=== PATIENT | female | born 1970 | race Hispanic/Latino ===

== ENCOUNTER → 2021-03-11 | Day surgery (SDC) | payer BC ==
[2012-03-19 18:57] VITALS: BP 107/80
--- NOTE | 2021-03-11 10:50 | RAD REPORT ---
EXAM DESCRIPTION: Ultrasound-guided right breast cyst FNA. CLINICAL HISTORY: Right breast mass/cyst N63.10 COMPARISON: Follow Up Breast Axilla Comp dated 01/19/2021 FINDINGS: Informed consent was obtained and time-out was performed. The patient's right breast was prepped and draped in the usual sterile fashion. 1% lidocaine was used for local anesthetic purposes. Utilizing aseptic technique and ultrasound guidance, a FNA needle, small hypoechoic cyst right breast 9 o'clock position was aspirated. A small amount of cyst fluid was obtained. The seen the cyst was s een to completely collapse. Patient tolerated procedure well. IMPRESSION: Successful ultrasound guided right breast cyst FNA procedure. .
== END ==
LOC: DS 09:37
PROVIDERS: ATTEND Surgery
DX: N63.10 Unspecified lump in the right breast, unspecified quadrant (principal)
CPT/HCPCS: 19000; 88162; 88305

== ENCOUNTER 2022-10-31 06:48 | Emergency (ER) | payer BC ==
--- OUTSIDE RECORDS SUMMARY | 2022-10-31 06:51 | XMS REPORT | Continuity of Care Document ---
:1970 Author Organization [facility] t Address [address] [place] [address] Care Team Providers Name Role Phone ELDER ZENDEJAS Primary Care Physician Unavailable Mary Anne Attending Clinician Unavailable CHERELLE Attending Clinician Unavailable MARIELLE PORTER Attending Clinician Unavailable Only, Brandon [facility] Attending Clinician Unavailable Marielle Porter MD Attending Clinician NATALYA CAMARA Attending Clinician Unavailable Provider, [facility] Attending Clinician Unavailable Ramila Lopez Attending Clinician Doctor Unassigned, [place] Attending Clinician Unavailable Manjit_Ana Admitting Clinician Unavailable CHERELLE Admitting Clinician Unavailable Payers Payer Name Policy Type Policy Number Effective Date Expiration Date S elizabeth [facility]IL[facility] [id number] 2022 ADVANTAGE (HMO) 00:00:00 [facility] [id number] 2021 00:00:00 [employer] TRS CARE [id number] 2017 00:00:00 Problems Condition Condition Condition Status Onset Resolution Last Treating Co mments Source Name Details Category Date Date Treatment Clinician Date No known No known Disease Unive rs active active ity of problems problems [facility] Allergies, Adverse Reactions, Alerts Allergy Allergy Status Severity Reaction(s) Onset Inactive Treating Comm ents Source Name Type Date Date Clinician NO KNOWN Drug Active Univers ALLERGIE Class ity of S [facility] Family History Family Member Diagnosis Comments Start Date Stop Date Source Natural father Cancer [facility] Natural mother [facility] Other [facility] Social History Social Habit Start Date Stop Date Quantity Comments Source Exposure to Not sure [facility] SARS-CoV-2 [facility] (event) [place] Tobacco use and 2018-12-21 2018-12-21 Never used Universit y of exposure 00:00:00 00:00:00 [facility] Alcohol intake 2018-01-14 2018-01-14 [facility] 00:00:00 00:00:00 non-drinker of alcohol (finding) Sex [birth year] [facility] 00:00:00 00:00:00 Smoking Status Start Date Stop Date Source Never smoker [facility] Medications Ordered Filled Start Stop Current Ordering Indication Dosage Frequency Signature Comments Components Source Medication Medication Date Date Medication? Clinician (SIG) Name Name cephALEXin 2020-09- No [id number] 250mg Take 1 Univers (KEFLEX) 10-06 capsule by ity of 250 mg 00:00: 05:59 mouth [place] capsule 00 :00 every 6 Medical (six) Branch hours for 5 days. fluconazole 2020-09- No [id number] 150mg Take 1 Univers (DIFLUCAN) 10-06 tablet by ity of 150 mg 00:00: 05:59 [place] tablet [place] :00 now for 1 Medical dose. Branch pregabalin 2019-09 Yes 50mg Take 50 mg U nivers 50 mg 0-05 by mouth 3 ity of capsule 14:32: (three) [place] 13 times Medical daily. Branch pregabalin 2019-09 Yes 50mg Take 50 mg U nivers 50 mg 0-05 by mouth 3 ity of capsule 14:32: (three) [place] 13 times Medical daily. Branch pregabalin 2019-09 Yes 50mg Take 50 mg U nivers 50 mg 0-05 by mouth 3 ity of capsule 09:32: (three) [place] 13 times Medical daily. Branch pregabalin 2019-09 Yes 50mg Take 50 mg U nivers 50 mg 0-05 by mouth 3 ity of capsule 09:32: (three) [place] 13 times Medical daily. Branch bromphenira 2019-09- No [id number] 5mL Take 5 mL Univers mine-pseudo 0-05 10-16 by mouth 4 i ty of ephedrine-D 00:00: 04:59 (four) [place] as M (BROMFED 00 :00 times Medical DM) 2-30-10 daily as Bran ch mg/5 mL needed for syrup Cough for up to 10 days. bromphenira 2019-09- No [id number] 5mL Take 5 mL Univers mine-pseudo 0-05 10-16 by mouth 4 i ty of ephedrine-D 00:00: 04:59 (four) [place] as M (BROMFED 00 :00 times Medical DM) 2-30-10 daily as Bran ch mg/5 mL needed for syrup Cough for up to 10 days. methylPREDN 2019-09- No [id number] Take by Univers ISolone 4 0-05 10-12 mouth ity of mg tablets 00:00: 04:59 SEE-INSTRU [place] 00 :00 CTIONS for Medical 6 days. Branch follow package directions methylPREDN 2019-09- No [id number] Take by Univers ISolone 4 0-05 10-12 mouth ity of mg tablets 00:00: 04:59 SEE-INSTRU [place] 00 :00 CTIONS for Medical 6 days. Branch follow package directions DULoxetine 2018- Yes 60mg Take 60 mg U nivers 60 mg 3-30 by mouth ity of capsule 22:05: daily. [address] DULoxetine 2018-0 Yes 60mg Take 60 mg U nivers 60 mg 3-30 by mouth ity of capsule 22:05: daily. [address] DULoxetine 2018-0 Yes 60mg Take 60 mg U nivers 60 mg 3-30 by mouth ity of capsule 17:05: daily. [address] DULoxetine 2018-0 Yes 60mg Take 60 mg U nivers 60 mg 3-30 by mouth ity of capsule 17:05: daily. [address] pregabalin 2018- Yes [id number] 50mg Take 1 Univers (LYRICA) 50 3-30 capsule by it y of mg capsule 00:00: mouth 3 [place] (three) Medical times Branch daily. pregabalin 2018- Yes [id number] 50mg Take 1 Univers (LYRICA) 50 3-30 capsule by it y of mg capsule 00:00: mouth [place] 00 (three) [place] times Branch daily. pregabalin 2018- Yes [id number] 50mg Take 1 Univers (LYRICA) 50 3-30 capsule by it y of mg capsule 00:00: mouth 3 [place] (three) Medical times Branch daily. pregabalin 2018- Yes [id number] 50mg Take 1 Univers (LYRICA) 50 3-30 capsule by it y of mg capsule 00:00: mouth 3 [place] 00 (three) Medical times Branch daily. Immunizations Ordered Filled Immunization Date Status Comments [facility] e Immunization Name Name SARS-COV-2 COVID-19 2021-01-01 Completed Unive rsity of PFIZER VACCINE 00:00:00 [facility] SARS-COV-2 COVID-19 2021-01-01 Completed Unive rsity of PFIZER VACCINE 00:00:00 [facility] SARS-COV-2 COVID-19 2020-12-11 Completed Unive rsity of PFIZER VACCINE 00:00:00 [facility] SARS-COV-2 COVID-19 2020-12-11 Completed Unive rsity of PFIZER VACCINE 00:00:00 [facility] Vital Signs Vital Name Observation Time Observation Value Comments Source Diastolic blood 2021-08-06 22:17:00 83 mm[Hg] Unive rsity of pressure [facility] Heart rate 2021-08-06 22:17:00 94 /min [facility] Body temperature 2021-08-06 22:17:00 36.61 [facility] Respiratory rate 2021-08-06 22:17:00 18 /min [facility] Body weight 2021-08-06 22:17:00 68.04 kg [facility] BMI 2021-08-06 22:17:00 27.44 kg/m2 [facility] Oxygen saturation in 2021-08-06 22:17:00 98 /min [facility] Arterial blood by [facility] [place] [facility] Pulse oximetry Branch Systolic blood 2021-08-06 22:17:00 127 mm[Hg] Univer sity of pressure [facility] Systolic blood 2020-06-28 14:29:00 128 mm[Hg] Univer sity of pressure [facility] Diastolic blood 2020-06-28 14:29:00 84 mm[Hg] Unive rsity of [facility] Heart rate 2020-06-28 14:29:00 88 /[facility] Body temperature 2020-06-28 14:29:00 36.56 [facility] Respiratory rate 2020-06-28 14:29:00 18 /min [facility] Body height 2020-06-28 14:29:00 157.5 [facility] Body weight 2020-06-28 14:29:00 68.312 kg [facility] BMI 2020-06-28 14:29:00 27.55 kg/m2 [facility] Oxygen saturation in 2020-06-28 14:29:00 98 /min [facility] Arterial blood by [facility] [place] [facility] Pulse oximetry Branch Procedures Procedure Date / Time Performed Performing Clinician Sourc e POCT URINALYSIS 2021-08-06 22:23:00 [facility] o f [facility] Plan of Care Planned Activity Planned Date Details Comments Source Future Scheduled 2022-10-12 COVID-19 VACCINE (#1) [facility] Test 09:02:35 [code = COVID-19 VACCINE (#1)] Future Scheduled 2022-10-12 Hepatitis C screening [facility] Test 09:02:35 (procedure) [code = 239247247] Future Scheduled 2022-10-12 Screening for [facility] Test 09:02:35 malignant neoplasm of cervix (procedure) [code = 426245463] Future Scheduled 2022-10-12 BREAST CANCER [facility] Test 09:02:35 SCREENING [code = BREAST CANCER SCREENING] Future Scheduled 2022-10-12 COLONOSCOPY SCREENING [facility] Test 09:02:35 [code = COLONOSCOPY SCREENING] Future Scheduled 2022-10-12 [facility] 09:02:35 [code = INFLUENZA VACCINE] Encounters Start End Encounter Admission Attending Care Care Encounter Source Date/Time Date/Time Type Type Clinicians Facility Department ID 2022-10-12 2022-10-12 Outpatient [facility] [id number] 00:00:00 00:00:00 [facility] 2022-09-11 2022-09-11 Travel [id number] Methodi 00:00:00 00:00:[id number] 3.430.2.7 0.2.7.3.698 Ho spita [id number] 084.8 l .8 2022-04-24 2022-04-24 Outpatient GILBERT_KAT MEHOP [facility] [id number] 00:00:00 00:00:00 IE 0801 da [facility] 2021-10-19 2021-10-19 [facility] [id number] Univers 17:00:00 17:00:00 [facility] 2021-10-19 2021-10-19 Laboratory Only, Ang Db Test [facility] 1.2.8 [id number] [id number] Univers 16:45:00 17:00:00 [facility] 350.1.13.10 ity of [place] 4.2.7.2.686 Keith as JO ANN?BLEA [id number] [address] OFFICE [facility] 2021-10-19 2021-10-19 [address] [facility] [id number] Univers 16:45:00 16:50:06 [facility] 2021-08-06 2021-08-06 [facility] [id number] Univers 16:20:00 16:31:28 [facility] 2021-08-06 2021-08-06 [facility] [id number] Univers 16:13:52 16:31:28 Care Marielle [employer] [id number] it y of [place] 4.2.7.2.686 Keith as JO ANN?BLEA [id number] [address] MEDICAL OFFICE [facility] 2021-01-01 2021-01-01 Outpatient [facility] [id number] Univers 08:30:00 08:30:00 ity [facility] 2020-12-11 2020-12-11 Outpatient [facility] [id number] Univers 15:50:00 [facility] 2020-08-11 2020-08-11 Outpatient R HOA, [facility] [id number] Univers 11:40:00 11:40:00 [facility] 2020-06-28 2020-06-28 Urgent Provider, [facility] [id number] Univers 09:17:58 09:49:43 Care Ramila Riggins [facility] [id number] [facility] [id number] [facility] [phone] [address] Office [address] 2020-06-28 2020-06-28 Outpatient R [facility] [id number] Univers 09:20:00 09:20:00 ity [facility] 2020-06-28 2020-06-28 Letter Doctor SELENA [id number] Univers 00:00:00 00:00:00 (Out) Unassigned, GIO 350.1.13.10 ity of [place] [facility] 4.2.7.2.686 Keith as [phone] [address] Results Test Description Test Time Test Comments Results Result Comments Source POCT URINALYSIS W SPECIFIC GRAVITY 2021-08-06 22:24:00 Test Item Value Reference Range Interpretation Comme nts POCT U SP GRAV (test code = 1.010 mg/dl 1.005-1.025 3255) POCT PH U (test code = 3254) 7 mg/dl 5-8 POCT U LEUK EST (test code = ++ Negative - Negative 3263) POCT U NIT (test code = 3262) neg Negative - Negative POCT U PROT (test code = 3259) trace Negative - Negative POCT U GLU (test code = 3256) neg Negative - Negative POCT U KETONE (test code = neg Negative - Negative 3258) POCT U UROBILI (test code = normal 0.2-1 3260) POCT U BILI (test code = 3261) neg Negative - Negative POCT U BLD (test code = 3257) about 50 Negative - Negative POCT U COLOR (test code = 3266) yellow POCT U APPEAR (test code = cloudy 3267) LYDIA (test code = LYDIA) accurate development and interpretation of all internal controls Lab Interpretation (test code = Abnormal 33390-8) [facility]
[2022-10-31] MEDS ORDERED: NA CHLORIDE 0.9% 1,000 ML ONE (07:30)
[2022-10-31 07:50] LABS: Absolute Lymphocytes (CBC) 1.5 K/uL (0.7-4.9); Hematocrit 41.3 % (36.0-45.0); Lymphocytes % 23.9 % (15.3-44.8); MCV 93.3 fL (80-100); MPV 7.1 fL (7.6-11.3); RBC Red Blood Cell Count 4.43 M/uL (3.86-4.86)
[2022-10-31 07:51] LABS: Urine Bacteria <20 /HPF (<20); Urine RBC <5 /HPF (None Seen)
[2022-10-31 08:08] LABS: Albumin 3.5 g/dL (3.4-5.0); Bilirubin Total 0.4 mg/dL (0.2-1.0); Potassium 3.8 mmol/L (3.5-5.1); Protein, Total 6.9 g/dL (6.4-8.2)
--- NOTE | 2022-10-31 08:50 | RAD REPORT ---
EXAM DESCRIPTION: CT - Abdomen Pelvis W Contrast - 10/31/2022 8:24 am CLINICAL HISTORY: ABD PAIN COMPARISON: CT ABD PELVIS W CONTRAST dated 06/08/2013 TECHNIQUE: Biphasic, helical CT imaging of the abdomen and pelvis was performed following 100 ml non -ionic IV contrast. Oral contrast: No. All CT scans are performed using dose optimization technique as appropriate and may include automated exposure control or mA/KV adjustment according to patient size. FINDINGS: No suspicious findings in the lung bases. The liver, spleen, and pancreas show no suspicious findings. Liver attenuation shows a mild diffuse f atty infiltration. Gallbladder and biliary tree are also without suspicious finding. Symmetric renal function is seen with no hydronephrosis or suspicious renal mass. No pyelonephritis o r acute parenchymal process. No bladder abnormalities. No adrenal abnormalities. Uterus is absent. Le ft ovary is unremarkable. Right ovary is positioned along the right posterior margin of the urinary b ladder. A 2.6 centimeter right ovarian cyst is present. Cyst rupture or hemorrhage not identified. A 12 millimeter right-side vaginal wall cyst is present. No dilated bowel loops or bowel wall thickening. The appendix is normal. No free air, free fluid or i nflammatory stranding. No hernia, mass or bulky lymphadenopathy. Lower lumbar degenerative changes are present. IMPRESSION: No appendicitis or other emergent CT abdomen or pelvis finding. A 2.6 centimeter right ovarian cyst is present. No cyst rupture or hemorrhage findings.
--- NOTE | 2022-10-31 09:13 | EDPHYS ---
Physician Documentation [facility] Name: Mine Azevedo Age: 51 yrs Sex: Female : 1970 Arrival Date: 10/31/2022 Time: 06:53 Bed 17 Private MD: ED Physician Kieran uH HPI: 10/31 07:41 This 51 yrs old Female presents to ER via Ambulatory with complaints of Pelvic sp3 Pain, Groin Pain. 07:41 51-year-old female with history of fibromyalgia status post hysterectomy 13 years ago sp3 presents with right lower quadrant abdominal pain for approximately 3 weeks. She saw her dryland farmer last week who recommended an ultrasound but she has not been able to obtain that as of yet. Over the weekend her symptoms increased and today she decided to come in to be evaluated. Pain is described as 6-7 out of 10 and waxing and waning in nature. It has no correlation with food, bowel movements, voiding, or activity. She denies headache, neck pain, fever, URI symptoms, chest pain, shortness of breath, trauma, injury, anterior abdominal pain, nausea, vomiting, diarrhea, rash, vaginal discharge or bleeding, urinary symptoms, or any other symptoms on ROS at this time.. BAKER CHEF: 07:03 LMP N/A - Hysterectomy ld1 Historical: - Allergies: 07:03 No Known Allergies; ld1 - Home Meds: 07:03 Cymbalta 60 mg oral cpDR 1 cap once daily [Active]; gabapentin 400 mg oral cap 3 times ld1 per day [Active]; - PMHx: 07:03 Fibromyalgia; ld1 - PSHx: 07:03 hysterectomy; Tonsillectomy; ld1 - Immunization history:: Adult Immunizations up to date, Client reports receiving the 2nd dose of the Covid vaccine. - Social history:: Smoking status: Patient denies any tobacco usage or history of. Patient/guardian denies using alcohol. ROS: 07:43 Constitutional: Negative for fever, chills, and weight loss, Eyes: Negative for injury, sp3 pain, redness, and discharge, ENT: Negative for injury, pain, and discharge, Neck: Negative for injury, pain, and swelling, Cardiovascular: Negative for chest pain, palpitations, and edema, Respiratory: Negative for shortness of breath, cough, wheezing, and pleuritic chest pain, Back: Negative for injury and pain, MS/Extremity: Negative for injury and deformity, Skin: Negative for injury, rash, and discoloration, Neuro: Negative for headache, weakness, numbness, tingling, and seizure, Psych: Negative for depression, anxiety, suicide ideation, homicidal ideation, and hallucinations, Allergy/Immunology: Negative for hives, rash, and allergies, Endocrine: Negative for neck swelling, polydipsia, polyuria, polyphagia, and marked weight changes, Hematologic/Lymphatic: Negative for swollen nodes, abnormal bleeding, and unusual bruising. 07:43 All other systems are negative. Exam: 07:43 Constitutional: This is a well developed, well nourished patient who is awake, alert, sp3 and in no acute distress. Head/Face: Normocephalic, atraumatic. Eyes: Pupils equal round and reactive to light, extra-ocular motions intact. Lids and lashes normal. Conjunctiva and sclera are non-icteric and not injected. Cornea within normal limits. Periorbital areas with no swelling, redness, or edema. ENT: Nares patent. No nasal discharge, no septal abnormalities noted. External auditory canals are clear. Oropharynx with no redness, swelling, or masses, exudates, or evidence of obstruction, uvula midline. Mucous membranes moist. Neck: Trachea midline, no thyromegaly or masses palpated, and no cervical lymphadenopathy. Supple, full range of motion without nuchal rigidity, or vertebral point tenderness. No Meningismus. Chest/axilla: Normal chest wall appearance and motion. Nontender with no deformity. No lesions are appreciated. Cardiovascular: Regular rate and rhythm with a normal S1 and S2. No gallops, murmurs, or rubs. Normal PMI, no JVD. No pulse deficits. Respiratory: Lungs have equal breath sounds bilaterally, clear to auscultation and percussion. No rales, rhonchi or wheezes noted. No increased work of breathing, no retractions or nasal flaring. Back: No spinal tenderness. No costovertebral tenderness. Full range of motion. Skin: Warm, dry with normal turgor. Normal color with no rashes, no lesions, and no evidence of cellulitis. MS/ Extremity: Pulses equal, no cyanosis. Neurovascular intact. Full, normal range of motion. Neuro: Awake and alert, GCS 15, oriented to person, place, time, and situation. Cranial nerves II-XII grossly intact. Motor strength 5/5 in all extremities. Sensory grossly intact. Cerebellar exam normal. Normal gait. Psych: Awake, alert, with orientation to person, place and time. Behavior, mood, and affect are within normal limits. 07:43 Abdomen/GI: Mild right lower quadrant abdominal pain without peritonitis, rebound or guarding. Pain extends into the right inguinal canal. There is no signs of hernia.. Vital Signs: 07:01 Pulse 77; Resp 18; Temp 98.3; Pulse Ox 100% on R/A; Weight 70.31 kg; Height 5 ft. 2 in. ld1 (157.48 cm); Pain 6/10; 07:01 BP 130 / 77; ld1 08:36 BP 109 / 60; Pulse 78; Pulse Ox 100% on R/A; ap3 07:01 Body Mass Index 28.35 (70.31 kg, 157.48 cm) ld1 MDM: 07:11 Patient medically screened. sp3 07:44 Data reviewed: vital signs, nurses notes. ED course: 51-year-old female with right sp3 lower quadrant inguinal abdominal pain. Differential diagnosis includes inguinal hernia, appendicitis, intestinal pathology including colitis, functional abdominal pain, UTI, kidney stone. I am not highly suspicious for CHICKEN STUFFER etiology given hysterectomy and lack of vaginal symptoms. Suprapubic abdominal pain. Work-up included CT scan of the abdomen and pelvis, laboratory values, and urine analysis. I reviewed nursing notes and vital signs. Disposition likely discharge if work-up is negative with follow-up to her dryland farmer. Clinically I am not highly suspicious for sepsis, aortic pathology, shock, or any other critical findings.. 09:12 ED course: Laboratory values and CT scan demonstrate no acute abnormality. Small sp3 ovarian cyst is noted likely functional in nature. I am not suspecting torsion. Patient will be safely discharged with CHICKEN STUFFER follow-up.. 10/31 07:18 Order name: CBC with Diff; Complete Time: 09:12 sp3 10/31 07:18 Order name: CMP; Complete Time: 09:12 sp3 10/31 07:18 Order name: Lipase; Complete Time: 09:12 sp3 10/31 07:18 Order name: Urine Microscopic Only; Complete Time: 09:12 sp3 10/31 07:18 Order name: CT Abd/Pelvis - IV Contrast Only; Complete Time: 09:12 sp3 10/31 07:18 Order name: IV Saline Lock; Complete Time: 34 sp3 10/31 07:18 Order name: Labs collected and sent; Complete Time: sp3 10/31 07:18 Order name: NPO; Complete Time: 07:21 sp3 Administered Medications: 07:40 Drug: NS 0.9% 1000 ml Route: IV; Rate: 1 bolus; Site: right antecubital; ap3 10:25 Follow up: IV Status: Completed infusion; IV Intake: 1000ml ap3 Disposition Summary: 10/31/22 09:13 Discharge Ordered Location: Home sp3 Condition: Stable sp3 Diagnosis - Other ovarian cysts sp3 Followup: sp3 - With: Private Physician - When: Upon discharge from the Emergency Department - Reason: Recheck today's complaints Discharge Instructions: - Discharge Summary Sheet sp3 - Ovarian Cyst sp3 Forms: - Medication Reconciliation Form sp3 - Thank You Letter sp3 - Antibiotic Education sp3 - Prescription Opioid Use sp3 Signatures: Dispatcher [employer] EDYany Cody RN RN ap3 Maria Washington RN RN ld1 Kieran Hu MD MD sp3 Corrections: (The following items were deleted from the chart) 07:39 07:18 Urine Dipstick-Ancillary ordered. sp3 ap3
--- NOTE | 2022-10-31 09:13 | ER ---
Nurse's Notes [facility] Name: Mine Azevedo Age: 51 yrs Sex: Female : 1970 Arrival Date: 10/31/2022 Time: 06:53 Bed 17 Private MD: Diagnosis: Other ovarian cysts Presentation: 10/31 07:01 Chief complaint: Patient states: LRQ \T\ pelvic pain X 3 weeks. Coronavirus screen: At ld1 this time, the client does not indicate any symptoms associated with coronavirus-19. Ebola Screen: No symptoms or risks identified at this time. Initial Sepsis Screen: Does the patient meet any 2 criteria? No. Patient's initial sepsis screen is negative. Does the patient have a suspected source of infection? No. Patient's initial sepsis screen is negative. Risk Assessment: Do you want to hurt yourself or someone else? Patient reports no desire to harm self or others. Onset of symptoms was October 31, 2022. 07:01 Method Of Arrival: Ambulatory ld1 07:01 Acuity: DONALD 3 ld1 Triage Assessment: 07:03 General: Appears in no apparent distress. comfortable, Behavior is calm, cooperative, ld1 appropriate for age. Pain: Complains of pain in right lower quadrant and pelvis Pain does not radiate. Pain currently is 6 out of 10 on a pain scale. at worst was 9 out of 10 on a pain scale. Quality of pain is described as sharp, Is intermittent. Pain: Is. Pain: Aggravated by laying down. EENT: No signs and/or symptoms were reported regarding the EENT system. Neuro: Level of Consciousness is awake, alert, obeys commands, Oriented to person, place, time, situation. Cardiovascular: Capillary refill < 3 seconds Patient's skin is warm and dry. Respiratory: Airway is patent Respiratory effort is even, unlabored. GI: Abdomen is round non-distended. : No signs and/or symptoms were reported regarding the genitourinary system. Derm: No signs and/or symptoms reported regarding the dermatologic system. Musculoskeletal: No signs and/or symptoms reported regarding the musculoskeletal system. 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 - Social history:: Smoking status: Patient denies any tobacco usage or history of. Patient/guardian denies using alcohol. Screenin:34 [facility] ED Fall Risk Assessment (Adult) History of falling in the last 3 months, ap3 including since admission No falls in past 3 months (0 pts). Abuse screen: Denies threats or abuse. Nutritional screening: No deficits noted. Tuberculosis screening: No symptoms or risk factors identified. Assessment: 07:40 General: Appears comfortable, Behavior is calm, cooperative. Pain: Complains of pain in ap3 right lower quadrant Pain began approx 3 weeks ago. Neuro: Level of Consciousness is awake, alert, obeys commands, Oriented to person, place, time, situation, Gait is steady, Speech is normal. Cardiovascular: Patient's skin is warm and dry. Respiratory: Airway is patent Respiratory effort is even, unlabored, Respiratory pattern is regular, symmetrical. Vital Signs: 07:01 Pulse 77; Resp 18; Temp 98.3; Pulse Ox 100% on R/A; Weight 70.31 kg; Height 5 ft. 2 in. ld1 (157.48 cm); Pain 6/10; 07:01 BP 130 / 77; ld1 08:36 BP 109 / 60; Pulse 78; Pulse Ox 100% on R/A; ap3 07:01 Body Mass Index 28.35 (70.31 kg, 157.48 cm) ld1 ED Course: 06:53 Patient arrived in ED. ja2 07:03 Triage completed. ld1 07:03 Arm band placed on right wrist. ld1 07:10 Kieran Hu MD is Attending Physician. sp3 07:18 Yany Jasso, DELANEY is Primary Nurse. ap3 07:33 Inserted saline lock: 20 gauge in right antecubital area, using aseptic technique. ap3 Blood collected. 07:34 Patient has correct armband on for positive identification. Bed in low position. Call ap3 light in reach. Side rails up X 1. Pulse ox on. NIBP on. Door closed. Noise minimized. 08:[address] via wheelchair. ap3 08:26 CT Abd/Pelvis - IV Contrast Only In Process Unspecified. EDMS 08:27 Patient moved back from [address]. ap3 10:24 IV discontinued, intact, bleeding controlled, No redness/swelling at site. Pressure ap3 dressing applied. 10:30 No provider procedures requiring assistance completed. ap3 Administered Medications: 07:40 Drug: NS 0.9% 1000 ml Route: IV; Rate: 1 bolus; Site: right antecubital; ap3 10:25 Follow up: IV Status: Completed infusion; IV Intake: 1000ml ap3 Medication: 07:35 VIS not applicable for this client. ap3 Intake: 10:25 IV: 1000ml; Total: 1000ml. ap3 Outcome: 09:13 Discharge ordered by . sp3 10:31 Discharged to home ambulatory. ap3 10:31 Condition: good 10:31 Discharge instructions given to patient, Instructed on discharge instructions, follow up and referral plans. Demonstrated understanding of instructions, follow-up care. 10:31 Patient left the ED. ap3 Signatures: Dispatcher [employer] EDCA Yany Jasso RN RN ap3 Maria Washington RN RN ld1 Kieran Hu MD MD sp3 Alia Vega
[2022-10-31 10:54] VITALS: TEMP 98.3; O2SAT 100
[2022-10-31 10:55] VITALS: BP 109/60
== END 2022-10-31 10:31 | disposition home or self-care (01) ==
LOC: ER 06:48
DX: N83.299 Other ovarian cyst, unspecified side (principal)
CPT/HCPCS: 85025; 36415; 81015; 83690; 80053; 74177; Q9967; J7030

== ENCOUNTER 2024-01-02 11:31 | Day surgery (SDC) | payer BC ==
[2024-01-01 16:45] LABS: Absolute Basophils 0.1 K/uL (0-0.5); Absolute Eosinophils 0.1 K/uL (0-0.5); Absolute Lymphocytes (CBC) 2.5 K/uL (0.7-4.9); Absolute Monocytes 0.6 K/uL (0.1-1.3); Absolute Neutrophil 4.6 K/uL (1.8-8.0); Basophils % 0.8 % (0-1.3); Eosinophils % 1.1 % (0-4.4); Hematocrit 39.1 % (36.0-45.0); Hemoglobin 13.4 g/dL (12.0-15.0); Lymphocytes % 32.2 % (15.3-44.8); MCH 32.3 pg (27.0-35.0); MCHC 34.1 g/dL (32.0-36.0); MCV 94.7 fL (80-100); MPV 7.9 fL (7.6-11.3); Monocytes % 8.1 % (3.3-12.3); Neutrophils % 57.8 % (41.7-73.7); Nucleated Red Blood Cells % 0.1 % (0-0); Platelets 286 thou/uL (152-406); RBC Red Blood Cell Count 4.13 M/uL (3.86-4.86); Red Cell Distribution Width 12.9 % (12.1-15.2)
[2024-01-01 16:59] LABS: Albumin 3.8 g/dL (3.4-5.0); Albumin/Globulin Ratio 1.1 (1.1-1.8); Bilirubin Total 0.4 mg/dL (0.2-1.0); Globulin 3.4 g/dL (2.3-3.5); Protein, Total 7.2 g/dL (6.4-8.2)
[2024-01-02] MEDS: Ringers Lactate 1,000 ML IV ONE ×2 (12:00→15:06)
[2024-01-02] MEDS ORDERED: ONDANSETRON 4 MG/2 ML VIAL ONE (12:39)
[2024-01-02] MEDS ORDERED: FENTANYL CITR 100 MCG/2 ML ONE (12:39)
[2024-01-02] MEDS ORDERED: KETOROLAC 30 MG/ML INJ ONE (12:39)
[2024-01-02] MEDS ORDERED: propofoL 200 MG/20 ML VIAL IV ONE (12:39)
[2024-01-02] MEDS ORDERED: ROCURONIUM 50 MG/5 ML VIAL IV ONE (12:39)
[2024-01-02] MEDS ORDERED: LIDOCAINE 2% MPF 5 ML VIAL ONE (12:39)
[2024-01-02] MEDS ORDERED: dexAMETHasone 10 MG/ML VIAL ONE (12:39)
[2024-01-02] MEDS ORDERED: MIDAZOLAM HCL 2 MG/2 ML INJ ONE (12:40)
[2024-01-02] MEDS: CEFOXITIN SODIUM 2 GM/VIAL ONE (13:11)
[2024-01-02] MEDS ORDERED: NS 0.9% VIAL 20 ML ONE (13:34)
[2024-01-02] MEDS: BUPIVACAINE 0.25% PF 30 ML VIAL ONE (13:35)
[2024-01-02] MEDS ORDERED: NS 0.9% VIAL 10 ML ONE (13:43)
[2024-01-02] MEDS ORDERED: GLYCOPYRROLATE 0.2 MG/ML SYR ONE (13:44)
--- NOTE | 2024-01-02 14:21 | P.OP ---
Preoperative diagnosis: Chronic Cholecystitis Postoperative diagnosis: Chronic Cholecystitis Primary procedure: Laparoscopic Cholecystectomy with ICG Cholangiography Anesthesia: GETA + Local Estimated blood loss: < 10cc Specimen: Gallbladder Findings: Distended GB, Short Cystic Duct Complications: None Transferred to: Recovery Room Condition: Good
[2024-01-02] MEDS: MEPERIDINE HCL 25 MG/ML SYR ONE (14:33)
[2024-01-02] MEDS: HYDROMORPHONE HCL 1 MG/ML INJ ONE (14:48)
--- NOTE | 2024-01-02 15:30 | OP ---
Date of Procedure: 01/02/2024 Surgeon: Rusty Caballero MD, Preoperative Diagnosis: Chronic cholecystitis. Postoperative Diagnosis: Chronic cholecystitis. Procedure Performed: Laparoscopic cholecystectomy with indocyanine green cholangiography. Anesthesia: General endotracheal with local 0.25% Marcaine. Estimated Blood Loss: Less than 10 cc. Specimen: Gallbladder. Findings: Distended gallbladder and short cystic duct. Complications: None. Disposition: Patient transferred to recovery room in good condition. Procedure In Detail: After informed consent was obtained, patient was brought into the operating isabella m, prepped and draped in the usual sterile fashion after adequate anesthesia was achieved. I made a supraumbilical incision down to subcutaneous tissue. A 5-mm 0-degree optical trocar was introduced i nto the abdomen without incident or complication. Insufflation was obtained to 15 mmHg, at this time . There was no injury to vital structures upon entry in the abdomen. Two additional trocars were pl aced, one in the epigastrium and one in the right upper quadrant. All of these were similarly anesth etized and sharply incised. A 5 mm trocar was placed under direct visualization without incident or complication. The umbilical trocar was then upsized to 12 mm under direct visualization without inci dent or complication. Insufflation was maintained at 15 mmHg throughout the procedure. Patient was positioned head up right-side up position. Ratcheted graspers were used to grasp patient's gallbladd er, placed toward the patient's right shoulder. The gallbladder was found to be quite distended, at this point. There were adhesions to the anterior surface of the gallbladder to the stomach as well a s to the omental fat. This was taken down using electrocautery and blunt dissection. After this was completed, dissection continued to the Leonardo pouch of the gallbladder. Two structures were ident ified. After skeletonization of these 2 structures, we identified both the cystic duct and cystic ar ronnie. Indocyanine green cholangiography was performed, at this point, identifying both cystic duct a nd cystic artery as well as the bifurcation at the cystic duct and common duct junction. There was a short cystic duct, at this point. However, there was adequate landing zone for clips placement. Do uble titanium clips were placed doubly on the proximal side, singly on the distal side of both the cy stic duct and cystic artery. These structures were then ligated using Endo Gopal without incident o r complication. The gallbladder was removed from the hepatic fossa with electrocautery without any a dditional hemostatic measures required. Gallbladder was placed in EndoCatch bag and removed through the umbilical trocar site and sent for pathologic examination. The abdomen was reinsufflated at this point. The area was copiously irrigated. Indocyanine green cholangiography confirmed the patency o f the common duct as well. No spillage of bile throughout the procedure. The area was copiously irr igated and suctioned until completely dry. All effluent was suctioned out. The patient was position ed back in neutral position. Remaining effluent was suctioned out. The 12 mm trocar site was then c losed using a Martin-Enoch suture passer with an 0 Vicryl in an interrupted fashion with good appr oximation of tissues. The abdomen was completely desufflated under direct visualization without inci dent or complication. All skin incisions were then copiously irrigated and closed with a 4-0 Monocry l in a running fashion. Dermabond placed over top. The patient tolerated procedure well without inc ident or complication, transferred to PACU in good condition. All counts were correct at the end of the case. TK/MODL Voice ID: [id number] Report ID: [id number]
[2024-01-02 16:04] VITALS: BP 112/58; TEMP 97.2; O2SAT 98
== END 2024-01-02 15:55 | disposition home or self-care (01) ==
LOC: OR 11:31
PROVIDERS: ATTEND Surgery
PROC: BF50200 Other Imaging of Bile Ducts using Fluorescing Agent, Indocyanine Green Dye, Intraoperative (ICD-10-PCS; 2024-01-02)
PROC: 0FT44ZZ Resection of Gallbladder, Percutaneous Endoscopic Approach (ICD-10-PCS; principal; 2024-01-02 13:15)
DX: K80.10 Calculus of gallbladder with chronic cholecystitis without obstruction (principal); E78.5 Hyperlipidemia, unspecified; D89.89 Other specified disorders involving the immune mechanism, not elsewhere classified
CPT/HCPCS: 85025; 36415; 80053; 47563; A4216 ×2; J2704; J2001; J2250; J3010; J1100; J2175; J1170; J0694; J2405; J7120 ×2; 88304